=== PATIENT | male | born 1985 | race Caucasian/White ===

== ENCOUNTER 2017-07-08 16:56 | Emergency (ER) | payer BC, SELFPAY ==
[~2017-07-08 16:56] MED LIST: Sodium Chloride 0.9% 100 ML BAG ONE; Sodium Chloride Irrig Solution 250 ML BOT ONE
[2017-07-08] MEDS ORDERED: Piperacillin/Tazobactam 3.375 GM VIAL ONE (17:24)
[2017-07-08] MEDS ORDERED: Adacel (T-DAP) 0.5 ML VIAL ONE (17:24)
[2017-07-08] MEDS ORDERED: Acetaminophen/Codeine 30-300mg Tablet ONE (17:24)
[2017-07-08 17:50] LABS: #Basophils 0.1 thou/uL (0.0-0.2); #Eosinphils 0.1 thou/uL (0.0-0.7); #Lymphocytes 2.1 thou/uL (1.20-3.40); #Monocytes 0.7 thou/uL (0.11-0.59); #Neutrophils 5.9 thou/uL (1.40-6.50); %Basophils 0.8 % (0.0-1.0); %Eosinophils 1.6 % (0.0-10.0); %Lymphocytes 23.9 % (21.0-51.0); %Monocytes 8.2 % (0.0-10.0); %Neutrophils 65.6 % (42.0-75.0); Hemoglobin 17.6 g/dL (14.0-18.0); Mean Corpuscular HGB CONC 33.1 g/dL (32.0-36.0); Mean Corpuscular Hemoglobin 29.6 pg (27.0-31.0); Mean Corpuscular Volume 89.6 fl (80.0-94.0); Platelet Count 228 thou/uL (130-400); RBC Distribution Width 11.7 % (11.5-14.5); Red Blood Cell (RBC) Count 5.95 mill/uL (4.70-6.10); White Blood Cell (WBC) Count 8.9 thou/uL (4.8-10.8)
[2017-07-08 18:03] LABS: Anion Gap 13 mmol/L (10-20); BUN (Urea Nitrogen) 9 mg/dL (8.9-20.6); Calc. Creatinine Clearance 0 mL/min (70-130); Calcium 10.2 mg/dL (7.8-10.44); Carbon Dioxide 25 mmol/L (22-29); Chloride 105 mmol/L (98-107); Estimated GFR-MDRD 77; Glucose 121 mg/dL (70-105); Potassium 3.7 mmol/L (3.5-5.1); Sodium 139 mmol/L (136-145)
[2017-07-08] MEDS ORDERED: Lidocaine 1% 20 ML MDV ONE (18:26)
[2017-07-08] MEDS ORDERED: Ketorolac Tromethamine 30 MG/ML VIAL ONE (18:55)
== END 2017-07-08 20:32 | disposition home or self-care (01) ==
LOC: MADERS 16:56
DX: L02.01 Cutaneous abscess of face (principal); L03.211 Cellulitis of face; F17.210 Nicotine dependence, cigarettes, uncomplicated; Z23 Encounter for immunization
CPT/HCPCS: 10060; 80048; 85025; 87040; 90471; 90715; 96365; 96366; 96367; 96375; J1885; J2001; J2543; J3370; J7050

== ENCOUNTER 2017-07-09 07:50 | Emergency (ER) | payer SELFPAY ==
[2017-07-09] MEDS ORDERED: Ketorolac Tromethamine 30 MG/ML VIAL ONE (08:36)
[2017-07-09] MEDS ORDERED: Azithromycin 500 MG VIAL ONE (08:36)
[2017-07-09] MEDS ORDERED: Morphine Sulfate 2 MG/ML SYRINGE ONE (08:36)
[2017-07-09] MEDS ORDERED: Ondansetron HCl/PF 4 MG/2 ML Vial ONE (08:36)
[2017-07-09] MEDS ORDERED: cefTRIAXone\\ROCEPHIN 1 GM VIAL ONE ×2 (08:36→13:07)
[2017-07-09] MEDS ORDERED: Sodium Chloride 0.9% 100 ML BAG ONE ×2 (08:45→13:06)
[2017-07-09 09:00] LABS: #Basophils 0.2 thou/uL (0.0-0.2); #Lymphocytes 0.9 thou/uL (1.20-3.40); #Monocytes 1.2 thou/uL (0.11-0.59); #Neutrophils 12.3 thou/uL (1.40-6.50); %Basophils 1.2 % (0.0-1.0); %Eosinophils 0.2 % (0.0-10.0); %Neutrophils 84.6 % (42.0-75.0); Mean Corpuscular HGB CONC 33.2 g/dL (32.0-36.0); Mean Corpuscular Hemoglobin 30.1 pg (27.0-31.0); Mean Corpuscular Volume 90.7 fl (80.0-94.0); Mean Platelet Volume 9.6 fL (7.4-10.4); Platelet Count 217 thou/uL (130-400); RBC Distribution Width 11.6 % (11.5-14.5); Red Blood Cell (RBC) Count 5.64 mill/uL (4.70-6.10); White Blood Cell (WBC) Count 14.5 thou/uL (4.8-10.8)
[2017-07-09 09:04] LABS: ALT (SGPT) 23 U/L (8-55); AST (SGOT) 19 U/L (5-34); Albumin 4.2 g/dL (3.5-5.0); Alkaline Phosphatase 68 U/L (40-150); Anion Gap 13 mmol/L (10-20); BUN (Urea Nitrogen) 12 mg/dL (8.9-20.6); Bilirubin, Total 0.9 mg/dL (0.2-1.2); Calc. Creatinine Clearance 0 mL/min (70-130); Calcium 10.1 mg/dL (7.8-10.44); Carbon Dioxide 24 mmol/L (22-29); Chloride 105 mmol/L (98-107); Estimated GFR-MDRD 76; Glucose 113 mg/dL (70-105); Potassium 4.3 mmol/L (3.5-5.1); Protein, Total 7.2 g/dL (6.0-8.3); Sodium 138 mmol/L (136-145)
--- NOTE | 2017-07-09 09:44 | CT ---
CT FACIAL BONES WITHOUT CONTRAST: TECHNIQUE: Multiple axial tomograms were obtained through the facial bones without IV enhancement. HISTORY: Left orbital cellulitis. FINDINGS: The exam was performed without IV contrast. Therefore, small subcutaneous abscesses might not be ap parent on this study. The soft tissue image does show soft tissue swelling over left orbit and invo lving the epicampal region. The globe appears unremarkable. There is no retroorbital abnormality. The process appears preseptal. The sinuses and mastoids are well aerated and are clear. Facial eliud solomon are unremarkable. IMPRESSION: Soft tissue swelling over the left orbit and globe consistent with the history of orbital cellulitis . The process is preseptal. POS: [id number]
== END 2017-07-09 11:04 | disposition short-term general hospital (02) ==
LOC: MADERS 07:50
DX: L03.211 Cellulitis of face (principal); F17.210 Nicotine dependence, cigarettes, uncomplicated
CPT/HCPCS: 70486; 80053; 83605; 85025; 86140; 87070; 87077; 87186; 87205; 96365; 96375; J0456; J0696; J1885; J2270; J2405; J7050

== ENCOUNTER 2018-04-01 21:06 | Emergency (ER) | payer SELFPAY ==
[2018-04-01] MEDS ORDERED: Cephalexin 500 MG CAP ONE (21:33)
[2018-04-01] MEDS ORDERED: Bacitracin Zinc 1 Packet ONE (21:37)
== END 2018-04-01 21:43 | disposition home or self-care (01) ==
LOC: MADERS 21:06
DX: S61.412A Laceration without foreign body of left hand, initial encounter (principal); F17.210 Nicotine dependence, cigarettes, uncomplicated; F41.9 Anxiety disorder, unspecified; X58.XXXA Exposure to other specified factors, initial encounter
CPT/HCPCS: 99282

== ENCOUNTER 2020-07-16 15:01 | Emergency (ER) | payer OTHER, SELFPAY ==
[2020-07-16] MEDS ORDERED: Sulfameth/Trimethoprim DS 800-160mg TAB ONE (15:40)
== END 2020-07-16 16:00 | disposition home or self-care (01) ==
LOC: MADERS 15:01
DX: L03.113 Cellulitis of right upper limb (principal)
CPT/HCPCS: 99283

== ENCOUNTER 2021-06-14 13:46 | Emergency (ER) | payer OTHER, SELFPAY ==
[2021-06-15 19:45] LABS: SARS-CoV-2 PCR by NAA Not Detected (NotDetected)
== END 2021-06-14 14:54 | disposition home or self-care (01) ==
LOC: MADERS 13:46
DX: U07.1 COVID-19 (principal); J12.82 Pneumonia due to coronavirus disease 2019; J20.9 Acute bronchitis, unspecified; F17.220 Nicotine dependence, chewing tobacco, uncomplicated
CPT/HCPCS: 99406; U0003; U0005

== ENCOUNTER 2023-11-25 03:58 | Emergency (ER) | payer SELFPAY ==
[2023-11-25 04:23] LABS: Hematocrit 52.8 % (42.0-52.0); Hemoglobin 17.4 g/dL (14.0-18.0); Lymphocytes 12 % (21-51); MDiff Complete? YES; Mean Corpuscular Hemoglobin 31.4 pg (27.0-31.0); Mean Corpuscular Volume 95.4 fl (78.0-98.0); Mean Platelet Volume 8.3 fL (7.4-10.4); Monocytes 2 % (0-10); Neutrophil 86 % (42-75); Platelet Count 296 10x3/uL (130-400); RBC Distribution Width 12.6 % (11.5-14.5); Red Blood Cell (RBC) Count 5.53 mill/uL (4.70-6.10); White Blood Cell (WBC) Count 22.3 10x3/uL (4.8-10.8)
[2023-11-25] MEDS ORDERED: Sodium Chloride 0.9% 1,000 ML ONE ×2 (04:29→04:45)
[2023-11-25 04:38] LABS: Base Excess-Venous -11.9 mmol/L (-2.0 to 3.0); Bicarbonate (HCO3v) 19.7 mmol/L (22.0-28.0); CO2 Tension (PvCO2) 66.5 mmHg (42.0-51.0); Calcium, Ionized 1.33 mmol/L (1.15-1.33); Chloride 108 mmol/L (98-107); Hemoglobin - Calc 18.6 g/dL (14.0-18.0); Potassium 5.2 mmol/L (3.5-5.1); Sodium 140 mmol/L (138-145); T. Carbon Dioxide 21.8 mmol/L (22.0-28.0); vO2 Saturation-calc 58.2 % (60.0-85.0)
[2023-11-25 04:42] LABS: Acetaminophen Less than 10 mcg/mL (10.0-30.0); Alcohol Less than 10.0 mg/dL (Less than 10); CK (CPK) 694 U/L (30-200); Lipase 38 U/L (8-78); Magnesium 4.1 mg/dL (1.6-2.6); Salicylate Less than 8.0 mg/dL (15.0-30.0)
[2023-11-25 04:43] LABS: Troponin I Less than 0.010 ng/mL (< 0.028)
[2023-11-25 04:44] LABS: ALT (SGPT) 25 U/L (8-55); AST (SGOT) 34 U/L (5-34); Albumin 4.7 g/dL (3.5-5.0); Alkaline Phosphatase 82 U/L (40-110); Anion Gap 21 mmol/L (10-20); BUN (Urea Nitrogen) 17 mg/dL (8.9-20.6); Bilirubin, Total 0.6 mg/dL (0.2-1.2); Calc. Creatinine Clearance 0 mL/min (70-130); Calcium 10.5 mg/dL (7.8-10.44); Carbon Dioxide 18 mmol/L (22-29); Chloride 106 mmol/L (98-107); Estimated GFR 50; Glucose 377 mg/dL (70-105); Potassium 5.4 mmol/L (3.5-5.1); Protein, Total 7.7 g/dL (6.0-8.3); Sodium 140 mmol/L (136-145)
[2023-11-25] MEDS ORDERED: Boostrix 0.5 ML (Tdap) VIAL (>/=7 yrs of age) ONE (04:45)
[2023-11-25] MEDS ORDERED: Piperacillin/Tazobactam 3.375 GM VIAL ONE (04:54)
[2023-11-25] MEDS ORDERED: Sodium Chloride 0.9% 100 ML ONE (04:54)
[2023-11-25 04:56] LABS: Critical Call Chem-Lactate EMS.CLJ @ 0456
[2023-11-25 05:57] LABS: Bilirubin Negative (Negative); Blood, Urine Small (Negative); Clarity Clear (Clear); Glucose, Urine (Dipstick) 250 mg/dL (Negative); Ketone, Urine Negative (Negative); Leukocyte Negative (Negative); Nitrite Negative (Negative); Protein, Urine (Dipstick) 100 mg/dL (Neg-Trace); Urobilinogen 0.2 mg/dL (Less than 2); pH, Urine 6.5 (5.0-9.0)
[2023-11-25 06:05] LABS: Cocaine Metabolite Screen Not Detected (NotDetected); Methamphetamine Detected (NotDetected); Phencyclidine (PCP) Not Detected (NotDetected); THC/Cannabinoid Screen Detected (NotDetected)
[2023-11-25 06:06] LABS: Amphetamine Detected (NotDetected); Barbiturates Screen Not Detected (NotDetected); Benzodiazepine Screen Not Detected (NotDetected); Methadone Not Detected (NotDetected); Opiate Screen Not Detected (NotDetected); Oxycodone Screen Not Detected (NotDetected); Tricyclic Screen Not Detected (NotDetected)
[2023-11-25 06:09] LABS: RBC/HPF 0-3 HPF (0-3); Specific Gravity, Urine 1.017 (1.002-1.036)
[2023-11-25 06:10] LABS: Bacteria/HPF Rare-Few HPF (None Seen); CAUTI Indications for Culture Alt mental st,lethar; Squamous Epithelial 0-3 HPF (0-3); Urine Culture Reflex No No; WBC/HPF 0-3 HPF (0-3)
== END 2023-11-25 06:12 | disposition short-term general hospital (02) ==
LOC: MADERS 03:58
DX: A41.9 Sepsis, unspecified organism (principal); T68.XXXA Hypothermia, initial encounter; F10.129 Alcohol abuse with intoxication, unspecified; J69.0 Pneumonitis due to inhalation of food and vomit; E87.8 Other disorders of electrolyte and fluid balance, not elsewhere classified; S61.412A Laceration without foreign body of left hand, initial encounter; S61.411A Laceration without foreign body of right hand, initial encounter; S80.812A Abrasion, left lower leg, initial encounter; S80.811A Abrasion, right lower leg, initial encounter; Z23 Encounter for immunization; F17.210 Nicotine dependence, cigarettes, uncomplicated; W22.8XXA Striking against or struck by other objects, initial encounter
CPT/HCPCS: 36415; 71045; 80053; 80306; 80307; 81001; 82330; 82550; 82803; 83605; 83690; 83735; 83880; 84484; 85025; 87040; 90471; 90715; 93005; 96361; 96365; J2543; J3490; J7050

== ENCOUNTER 2024-01-24 18:16 | Emergency (ER) | payer OTHER, SELFPAY ==
[2024-01-24] MEDS ORDERED: cefTRIAXone (ROCEPHIN) 1 GM VIAL ONE (18:45)
[2024-01-24] MEDS ORDERED: Lidocaine 1% PF 5 ML VIAL ONE (18:45)
== END 2024-01-24 18:58 | disposition home or self-care (01) ==
LOC: MADERS 18:16
DX: L03.114 Cellulitis of left upper limb (principal); F17.210 Nicotine dependence, cigarettes, uncomplicated
CPT/HCPCS: 96372; 99282; J0696